=== PATIENT | male | born 1960 | race Hispanic/Latino ===

== ENCOUNTER 2021-11-26 07:46 | Day surgery (SDC) | payer OTHER ==
[2021-11-24 14:22] LABS: APPEARANCE,URINE Clear (CLEAR); BILIRUBIN,URINE Negative (NEGATIVE); COLOR,URINE Yellow (YELLOW); GLUCOSE, URINE (UA) >=1000 mg/dL (NEGATIVE); KETONES,URINE Negative (NEGATIVE); LEUKOCYTE ESTERASE ,URINE Negative (NEGATIVE); NITRATE,URINE Negative (NEGATIVE); OCCULT BLOOD,URINE Negative (NEGATIVE); PROTEIN,URINE POS 1+ mg/dL (NEGATIVE); UROBILINOGEN,URINE 0.2 mg/dL (0.2-1.0)
[2021-11-24 14:22] LABS: BASOPHILS % (AUTO) 0.6 % (0.0-5.0); EOSINOPHILS % (AUTO) 1.4 % (0.0-8.0); HEMATOCRIT 44.6 % (42-54); MEAN CORPUSCULAR HEMOGLOBIN 32.6 pg (27.0-33.0); MEAN CORPUSCULAR VOLUME 93.3 fL (79-99); NEUTROPHILS % (AUTO) 67.7 % (40.0-77.0); PLATELET COUNT (AUTO) 162 K/uL (130-400); RED BLOOD CELL COUNT(AUTO) 4.78 MIL/uL (4.50-6.20); WHITE BLOOD COUNT (AUTO) 6.2 K/uL (4.8-10.8)
[2021-11-24 14:28] LABS: CREATININE 0.9 mg/dL (0.5-1.5); POTASSIUM 4.4 mmol/L (3.5-5.1)
[2021-11-24 14:53] LABS: B-TYPE NATRIURETIC PEPTIDE 7 pg/mL (0-100)
[2021-11-24 15:02] LABS: INR 0.95 (0.85-1.15); PROTHROMBIN TIME 10.4 SEC (9.6-11.6)
[2021-11-24 15:02] LABS: BACTERIA,URINE Rare /HPF (None Seen); MUCUS,URINE Few LPF (None Seen); SQUAMOUS EPITHELIAL CELL,UR Few /HPF (0-2)
[2021-11-24 15:03] LABS: PARTIAL THROMBOPLASTIN TIME 27.4 SEC (26.3-35.5)
[2021-11-26] VITALS (9 sets, daily range): BP systolic 113–140; BP diastolic 70–77
[~2021-11-26] VITALS: Ht 167.6 cm; Wt 89.7 kg
[~2021-11-26 07:46] MED LIST: AMLO-257 PO; ATOR20TA65 PO; EMPA25TA PO; LISI20TA24 PO; METF750T46 PO
[2021-11-26] MEDS ORDERED: 0.9%NACL 1000ML 1,000 ML IV ONE (09:09)
[2021-11-26] MEDS ORDERED: LIDOCAINE HCL 1% 20 ML VIAL ONE (12:02)
[2021-11-26] MEDS ORDERED: NITROGLYCERIN 50MG VIAL ONE (12:03)
[2021-11-26] MEDS ORDERED: MIDAZOLAM HCL 1 MG/ML 2ML VIAL ONE (12:03)
[2021-11-26] MEDS ORDERED: IOHEXOL-350 50ML VIAL IV ONE (12:03)
[2021-11-26] MEDS ORDERED: IOHEXOL-350 75 ML VIAL IV ONE (12:03)
[2021-11-26] MEDS ORDERED: FENTANYL CITRATE PF 50 MCG/1 ML 2ML VIAL ONE (12:04)
[2021-11-26] MEDS ORDERED: BIVALIRUDIN 250 MG/VIAL IV ONE (12:04)
[2021-11-26] MEDS ORDERED: 0.9%NACL 1000ML 1,000 ML IV SCH (13:30)
== END 2021-11-26 17:19 | disposition home or self-care (01) ==
LOC: DAH 07:46
PROVIDERS: ATTEND Internal Medicine Cardiovascular Disease
DX: I25.119 Atherosclerotic heart disease of native coronary artery with unspecified angina pectoris (principal); I10 Essential (primary) hypertension; E11.59 Type 2 diabetes mellitus with other circulatory complications; E78.5 Hyperlipidemia, unspecified; E78.00 Pure hypercholesterolemia, unspecified; Z82.49 Family history of ischemic heart disease and other diseases of the circulatory system; Z72.89 Other problems related to lifestyle; Z79.84 Long term (current) use of oral hypoglycemic drugs; Z79.899 Other long term (current) drug therapy; Z79.01 Long term (current) use of anticoagulants
CPT/HCPCS: 36415; 71045; 80048; 81001; 82948 ×2; 83880; 85025; 85610; 85730; 93005; 93458; A4215; A4216; A4221; A4222; A4223 ×3; A4606; A4663; C1760; C1894 ×2; J1644; J2250; J3010; J3490; J7030 ×2; Q9965; Q9967 ×2; 99156; 99157; J0583